=== PATIENT | male | born 1970 | race Caucasian/White ===

== ENCOUNTER → 2024-02-16 12:40 | Outpatient (CLI) | payer OTHER, SELFPAY ==
--- NOTE | 2024-02-16 12:42 | DI.ECHO.S_ITS ---
[facility] +---------+ [facility] : : [address] : : [place] : : [id number] : : Phone: [phone] Echocardiogram Report + + :Name: KELVIN MCELROY Study Date: 02/16/2024 Height: 72 in : :Hospital ReadingLocation: Weight: 225 lb : : Gender: Male BSA: 2.2 m2 : :: 1970 Age: 53 yrs BP: 140/92 mmHg: :Reason For Study: CHRONIC ISCHEMIC HEART DISEASE : :Ordering Physician: ROZ, : :JORGE Performed By: Kaitlin Gilbert : :Referring: JORGE COURTNEY : + + Interpretation Summary The ejection fraction is estimated to be 50-55%. Diastolic parameters suggest probable normal left ventricular diastolic function and normal filling pressures. The right ventricular systolic function is normal. The right ventricular systolic pressure is estimated to be at least 22 mmHg based on an estimated right atrial pressure of 3 mm Hg. The left atrium is moderately dilated. There is mild aortic regurgitation. There is mild tricuspid regurgitation. Procedure: A two-dimensional transthoracic echocardiogram with color flow and Doppler was performed. The study quality was technically adequate. There is no prior echocardiogram noted for this patient. The patient was in sinus bradycardia with heart rates between 53-61 bpm during the exam. Left Ventricle: The left ventricle is normal in size and wall thickness. The ejection fraction is estimated to be 50-55%. Left ventricular wall motion is normal. Diastolic parameters suggest probable normal left ventricular diastolic function and normal filling pressures. Right Ventricle: The right ventricle is mildly dilated. The right ventricular systolic function is normal. Atria: The left atrium is moderately dilated. Right atrial size is normal. There is no Doppler evidence for an interatrial shunt. Mitral Valve: The mitral valve is normal in structure and function. There is trace mitral regurgitation. Aortic Valve: The aortic valve is trileaflet. The aortic valve opens well. There is no aortic valve stenosis. There is mild aortic regurgitation. Tricuspid Valve: The tricuspid valve is normal in structure and function. There is mild tricuspid regurgitation. The right ventricular systolic pressure is estimated to be at least 22 mmHg based on an estimated right atrial pressure of 3 mm Hg. Pulmonic Valve: The pulmonic valve leaflets are thin and pliable; valve motion is normal. There is mild pulmonic regurgitation. Great Vessels: The aortic root is normal size. The ascending aorta is mildly enlarged. The IVC is of normal diameter and collapses greater than 50% with a sniff. This suggests a low right atrial pressure of 3 mm Hg. Pericardium/ Pleura There is no pericardial effusion. There is no pleural effusion. MMode/2D Measurements & Calculations LVIDd: 5.8 cm LVOT diam: 2.3 cm LVIDs: 3.8 cm Ao root diam: 3.4 cm FS: 34.5 % asc Aorta Diam: 4.2 cm EPSS: 1.2 cm Ao Arch Diam (Prox Trans): 3.6 cm IVSd: 0.86 cm LVPWd: 0.71 cm LV prado. diameter/BSA (cm/m^2): 2.6 LV sys. diameter/BSA (cm/m^2): 1.7 LA A2 area: 29.0 cm2 RA long axis: 5.8 cm LA A4 area: 22.9 cm2 RA area: 19.4 cm2 LA length (vol): 5.5 cm RA vol: 55.2 ml LA vol: 102.7 ml RA : 24.6 ml/m2 LA vol index: 45.9 ml/m2 IVC diam: 1.7 cm RVD1 (basal): 4.3 cm TAPSE: 2.0 cm Doppler Measurements & Calculations Ao V2 max: 146.9 cm/sec LVOT Max Jhonny: 150.5 cm/sec Ao V2 mean: 104.2 cm/sec LV V1 max P.1 mmHg Ao max P.6 mmHg LV V1 VTI: 37.3 cm Ao mean P.1 mmHg BELÉN(I,D): 4.4 cm2 Ao V2 VTI: 35.7 cm BELÉN(V,D): 4.3 cm2 sev ratio: 1.0 BELÉN indexed to BSA (cm^2/m^2): 2.0 AI P1/2t: 706.1 msec AI dec slope: 179.6 cm/sec2 MV E max jhonny: 65.4 cm/sec TR max jhonny: 220.4 cm/sec MV A max jhonny: 56.8 cm/sec TR max P.4 mmHg MV E/A: 1.2 PA V2 max: 76.0 cm/sec Med Peak E' Jhonny: 8.8 cm/sec PA V2 mean: 53.5 cm/sec E/E' med: 7.4 PA mean P.3 mmHg Lat Peak E' Jhonny: 15.6 cm/sec PA pr(Accel): 3.6 mmHg E/E' lat: 4.2 E/e' average: 5.8 MV dec time: 0.30 sec SV(LVOT): 156.5 ml Reading Physician:SEBASTIÁN
== END ==
LOC: ECHO 12:42
PROVIDERS: Referring Provider Chiropractor; Visit Provider Chiropractor
DX: I08.2 Rheumatic disorders of both aortic and tricuspid valves (principal); I25.9 Chronic ischemic heart disease, unspecified; I77.89 Other specified disorders of arteries and arterioles; E11.9 Type 2 diabetes mellitus without complications
CPT/HCPCS: 93306